=== PATIENT | male | born 1945 | race Caucasian/White ===

== ENCOUNTER 2017-06-16 08:34 | Day surgery (SDC) | payer BC ==
[2017-06-13 14:55] VITALS: BMI 27.3
[2017-06-16] MEDS ORDERED: PROPOFOL 20 ML ONE ×2 (09:17)
[2017-06-16 10:43] VITALS: TEMP 97.9
[2017-06-16 10:46] VITALS: PULSE 94
[2017-06-16 11:10] VITALS: BP 150/92
--- NOTE | 2017-06-16 11:57 | PROC ---
Endoscopy Procedure Endoscopy procedure completed. Please see scanned procedure report.
--- NOTE | 2017-06-18 17:21 | PATH ---
Surgical Pathology Report Patient Name: GUTIERREZ HENRY [facility]. Rec. #: [id number] /Age/Gender: 1945 (Age: 72) / M Account: [id number] Location: [facility]-ENDOSCOPY Taken: 06/16/2017 Received: 06/16/2017 Reported: 06/18/2017 Physicians: Lorenzo Lanier M.D. Specimen(s) Received A: BX ASCENDING COLON POLYP B: BX RECTAL POLYP #1 C: BX RECTAL POLYPS #2 Clinical History Preoperative diagnosis: Colon cancer screening Postoperative diagnosis: Polyps Final Diagnosis A. DESCENDING COLON, BIOPSY: TUBULAR ADENOMA. B. RECTAL POLYP #1, BIOPSY: HYPERPLASTIC POLYP. C. RECTAL POLYPS #2, BIOPSY: HYPERPLASTIC POLYPS. Electronically Signed Tabatha Gomez M.D. Gross Description A. Received in formalin, labeled "biopsy ascending colon" are 3 he, irregular portions of soft tissue ranging from 0.1-0.2 cm. in greatest dimension. The specimens are submitted in toto in one cassette. B. Received in formalin, labeled "biopsy rectal polyp #1" are 4 he, irregular portions of soft tissue ranging from 0.1-0.2 cm. in greatest dimension. The specimens are submitted in toto in one cassette. C. Received in formalin, labeled "biopsy rectal polyps #2" are 3 he, irregular portions of soft tissue averaging 0.2 cm. in greatest dimension. The specimens are submitted in toto in one cassette. 06/16/201706/16/2017
== END 2017-06-16 11:20 | disposition home or self-care (01) ==
LOC: JASU-ENDO 08:34
PROVIDERS: ATTEND Internal Medicine Gastroenterology
PROC: 0DBP8ZX Excision of Rectum, Via Natural or Artificial Opening Endoscopic, Diagnostic (ICD-10-PCS; 2017-06-16)
PROC: 0DBK8ZX Excision of Ascending Colon, Via Natural or Artificial Opening Endoscopic, Diagnostic (ICD-10-PCS; principal; 2017-06-16 09:45)
DX: Z12.11 Encounter for screening for malignant neoplasm of colon (principal); K62.1 Rectal polyp; D12.2 Benign neoplasm of ascending colon; K64.8 Other hemorrhoids
CPT/HCPCS: 82962; 88305-TC

== ENCOUNTER 2017-07-03 12:43 | Day surgery (SDC) | payer BC ==
[2017-07-02 13:58] VITALS: BMI 29.7
[2017-07-03] MEDS ORDERED: MIDAZOLAM HCL 2 MG/2 ML SINGLE DOSE VIAL ONE ×2 (13:44)
--- NOTE | 2017-07-03 13:48 | HP ---
History & Physical Update - History History: No Change - Physical Physical: No Change - Assessment Assessment: No Change - Plan Plan: No Change (surgical plan as discussed with Dr Villagomez in office unchanged.)
[2017-07-03] MEDS ORDERED: BUPIVACAINE HCL/PF 0.5% (5MG/ML) 10 ML VIAL ONE ×2 (13:55→14:26)
[2017-07-03] MEDS ORDERED: PROPOFOL 20 ML ONE (14:52)
[2017-07-03] MEDS ORDERED: ROCURONIUM BROMIDE 50 MG/5 ML VIAL ONE (14:52)
[2017-07-03] MEDS ORDERED: LIDOCAINE HCL/PF 2% SDV 5ML VIAL ONE (15:02)
[2017-07-03] MEDS ORDERED: KETOROLAC TROMETHAMINE 30 MG/1 ML VIAL ONE (15:05)
[2017-07-03] MEDS ORDERED: DEXAMETHASONE SOD PHOSPHATE 4 MG/1 ML VIAL ONE (15:05)
[2017-07-03] MEDS ORDERED: NEOSTIGMINE METHYLSULFATE 0.5 MG/ML - 10 ML MDV ONE (15:06)
[2017-07-03] MEDS ORDERED: ceFAZolin SODIUM 1 GM VIAL IVPB ONE (15:09)
[2017-07-03] MEDS ORDERED: ceFAZolin SODIUM 1 GM VIAL ONE (15:11)
[2017-07-03] MEDS ORDERED: SODIUM CHLORIDE 0.9% P/F 10 ML VIAL IJ ONE (15:11)
[2017-07-03] MEDS ORDERED: BUPIVACAINE HCL/PF 0.5% (5MG/ML) 10 ML VIAL IJ ONE ×2 (15:13)
[2017-07-03] MEDS ORDERED: ONDANSETRON 4 MG/2 ML VIAL IVPUSH PRN (16:43)
[2017-07-03] MEDS ORDERED: LACTATED RINGERS SOLUTION 1,000 ML IV SCH (16:45)
--- NOTE | 2017-07-03 16:47 | OP ---
Operative Note - Note: Operative Date: 07/03/17 Pre-Operative Diagnosis: Right recurrent inguinal hernia Operation: Right inguinal hernia repair with mesh, excision of cord lipoma Findings: lipoma of cord, inguinal hernia sac Post-Operative Diagnosis: Other (right inguinal hernia, lipoma of cord) Surgeon: Alcon Villagomez Portfolio Consultant: Tabatha Torrez Anesthesiologist/BIN WORKER: Salazar Downs Anesthesia: General (with TAP block) Specimens Removed: limpoma of cord, right inguinal hernia sac Estimated Blood Loss (mls): 10 Fluid Volume Replaced (mls): 1,000 Operative Report Dictated: Yes
--- NOTE | 2017-07-03 16:48 | SURG ---
Surgery Radio Tester Note Radio Tester: Tabatha Torrez PA-C Date of Service: 07/03/17 Diagnosis: right recurrent inguinal hernia Procedure: Right inguinal hernia repair with mesh, excision of cord lipoma I was present for the entirety of the operative procedure. For further detail, please refer to operative report. Visit type - Case Type Case Type: Scheduled Admission - Emergency Emergency Visit: No - New patient This patient is new to me today: Yes Date on this admission: 07/03/17
[2017-07-03] MEDS ORDERED: ACETAMINOPHEN 1000 MG/100 ML VIAL (NON FORMULARY) IVPB ONE (17:00)
[2017-07-03] MEDS ORDERED: oxyCODONE HCL 5 MG TABLET PO ONE (17:00)
[2017-07-03] MEDS ORDERED: ACETAMINOPHEN 325 MG TABLET (FP) PO ONE (17:15)
[2017-07-03 19:14] VITALS: BP 139/77; PULSE 90; TEMP 97.4
--- NOTE | 2017-07-07 16:32 | PATH ---
Surgical Pathology Report Patient Name: GUTIERREZ HENRY [facility]. Rec. #: [id number] /Age/Gender: 1945 (Age: 72) / M Account: [id number] Location: [facility] Taken: 07/03/2017 Received: 07/04/2017 Reported: 07/07/2017 Physicians: Alcon Villagomez MD Specimen(s) Received A: RIGHT INGUINAL LIPOMA B: RIGHT INGUINAL SAC Clinical History Recurrent right inguinal hernia Final Diagnosis A. INGUINAL LIPOMA, RIGHT, EXCISION: MATURE FIBROADIPOSE TISSUE CONSISTENT WITH LIPOMA. B. INGUINAL SAC, RIGHT, OPEN REPAIR OF RECURRENT INGUINAL HERNIA: BENIGN FIBROMEMBRANOUS AND ADIPOSE TISSUE CONSISTENT WITH HERNIA SAC. Electronically Signed Cecilia Cuellar M.D. Gross Description A. Received in formalin labeled "right inguinal lipoma," is a 7.5 x 2.8 x 1.3 cm portion of yellow, lobulated adipose tissue with attached he-avitia fibromembranous tissue. Sectioning reveals yellow, lobulated fat. Inter Com Servicer sections are submitted in one cassette. B. Received in formalin labeled "right inguinal sac," is a 3.0 x 1.7 x 0.9 cm he galaviz, saccular portion of fibromembranous tissue with minimal attached fat, consistent with a hernia sac. Inter Com Servicer sections are submitted in one cassette. 07/04/201707/04/2017
--- NOTE | 2017-07-07 21:50 | OP ---
DATE OF OPERATION: 07/03/2017 PREOPERATIVE DIAGNOSIS: Recurrent right inguinal hernia. POSTOPERATIVE DIAGNOSIS: Right inguinal hernia, nonrecurrent. PROCEDURE: Repair of right inguinal hernia with mesh. SURGEON: Alcon Villagomez MD FILM EDITOR: Tabatha Torrez PA-C ANESTHESIA: General with TAP block. OPERATIVE FINDINGS: There was an indirect right inguinal hernia and a large lipoma of the cord and a weak floor. The rest of the findings were unremarkable, and specifically, there was no evidence of previous surgery in the right groin. DESCRIPTION OF PROCEDURE: The patient was placed on the operating table in the supine position, and after the induction of general anesthesia, patient's right groin was prepped with ChloraPrep and draped in sterile fashion. A timeout was taken , and a right groin transverse incision was made with a scalpel and taken down through skin, subcutaneous tissue, and Niyah fascia. The external oblique fascia was identified and opened proximally and distally through the external ring in the direction of its fibers. The cord structures and nerve were elevated at the level of the pubic tubercle, and a Elli drain placed around them for retraction and identification purposes. The previously noted findings were observed. The lipoma of the cord was traced up to the internal ring. It was clamped, excised, and its pedicle ligated with 2-0 Vicryl suture. The specimen was passed off the operative field. The indirect sac was identified and high ligation carried out using 2-0 Vicryl suture. Redundant sac was excised and sent for pathological examination as well. A piece of ProGrip mesh was fashioned into the inguinal canal and anchored at the pubic tubercle, shelving edge, and conjoint tendon with interrupted 2-0 Prolene. A keyhole was created for the cord structures, and the tails of the mesh brought above the level of the internal ring and crossed and anchored above the internal ring with 2-0 Prolene suture. Hemostasis was checked for and noted to be good, and then, the wound was copiously irrigated with sterile saline. Hemostasis was again verified, and the cord structures and nerve roots were returned to normal anatomic position. The external oblique fascia closed over them using continuous 2-0 Vicryl, recreating the external ring. Niyah fascia was reapproximated with interrupted 2-0 Vicryl, the deep dermis with interrupted 3-0 Vicryl, and the skin edges with 4-0 Monocryl in a subcuticular continuous fashion. Steri-Strips, dry sterile dressings, and Tegaderm were placed, and the procedure terminated at this point and the patient aroused from general anesthesia and transferred to the postanesthesia care unit in stable condition, awake and alert. ESTIMATED BLOOD LOSS: Minimal. DRAINS: None. SPECIMENS: Hernia sac and lipoma of cord to Pathology. I, Alcon Villagomez MD, was physically present in the operating room from the time the patient was placed on the operating table until he was transferred to the postanesthesia care unit in my accompaniment. MD JENNA Hubbard/[id number] MTDD
== END 2017-07-03 19:05 | disposition home or self-care (01) ==
LOC: JASU-SURG 12:43
PROVIDERS: ATTEND Surgery
PROC: 0YU50JZ Supplement Right Inguinal Region with Synthetic Substitute, Open Approach (ICD-10-PCS; principal; 2017-07-03 14:00)
DX: K40.90 Unilateral inguinal hernia, without obstruction or gangrene, not specified as recurrent (principal)
CPT/HCPCS: 88302-TC; 88304-TC; 94760